=== PATIENT | male | born 1985 | race Caucasian/White ===

== ENCOUNTER 2017-06-06 14:25 | Emergency (ER) | payer OTHER ==
[~2017-06-06] VITALS: Ht 177.8 cm; Wt 110.0 kg
[2017-06-06 14:31] VITALS: TEMP 36.6; Ht 177.8 cm; Wt 110.0 kg
[2017-06-06] MEDS ORDERED: HYDR-3124 PO (15:00)
[2017-06-06] MEDS ORDERED: CETI10TA10 PO (15:00)
[2017-06-06] MEDS ORDERED: MOME200A INH (15:00)
[2017-06-06] MEDS ORDERED: VNTHFA/IN INH (15:00)
[2017-06-06] MEDS ORDERED: PRED20TA PO (15:00)
[2017-06-06] MEDS ORDERED: ALBINS/ INH (15:00)
[2017-06-06] MEDS ORDERED: ESCI1TAB10 PO (15:00)
[2017-06-06] MEDS ORDERED: FLV1 PO (15:00)
[2017-06-06] MEDS ORDERED: CYAN10004 PO (15:00)
[2017-06-06] MEDS ORDERED: ATR25 PO (15:00)
[2017-06-06] MEDS ORDERED: LAMO25TA PO (15:00)
[2017-06-06] MEDS ORDERED: RANI300T2 PO (15:00)
--- NOTE | 2017-06-06 15:23 | EMERGENCY ROOM VISIT NOTE ---
History First contact with patient: 15:05 Chief Complaint: RASH Stated Complaint: RED SWOLLEN EYES/FACE, RASH IN PRIVATE AREA History of Present Illness The patient is a 31 year old male who presents to the Emergency Room with complaints of rash. The patient states that he noticed erythema and swelling in the bilateral periorbital area 3 days ago. He states it is itchy. He states he also notices small area on his penis. He states that there is mild swelling and he reports that the rash is itchy. He was doing gardening on . The patient denies any vomiting, trouble breathing. The patient is currently being evaluated for an unknown possible autoimmune disease in which she gets recurrent dermatitis and swelling. For this, he takes Atarax and Zantac, prednisone when he gets a flare. He took prednisone yesterday but not today. The patient states he also has been thoroughly evaluated for intermittent episodes of memory loss. He follows closely with neurology and has had an extensive evaluation. He has no change in the symptoms. The patient presents today for the rash. He denies any pain. Review of Systems A 10 system review of systems was completed with positives and pertinent negatives listed in the HPI. Past Medical/Surgical History Medical Problems: (1) Anxiety (2) Depression (3) Sleep apnea Social History Smoking Status: Never Smoker Housing Status: lives with family Current/Historical Medications Scheduled Cetirizine Hcl (Zyrtec), 10 MG PO DAILY Cyanocobalamin (Vitamin B-12 1000 Mcg), 1,000 MCG PO DAILY Escitalopram Oxalate (Lexapro), 30 MG PO DAILY Folic Acid (Folic Acid), 1 MG PO DAILY Hydroxyzine HCl (Hydroxyzine HCl), 25 MG PO HS Lamotrigine (Lamictal), 25 MG PO DAILY Mometasone Furoate-Formoterol (Dulera 200/5 Mcg), 2 PUFFS INH BID Ranitidine (Zantac), 300 MG PO DAILY Scheduled PRN Albuterol Hfa (Ventolin Hfa), 2 PUFFS INH Q4H PRN for Shortness of Breath Albuterol Sulf (Proventil 0.083% 2.5MG/3ML), 2.5 MG INH Q4 PRN for Cough Hydroxyzine Hcl (Atarax), 25 MG PO Q4H PRN for RASH/SWELLING Prednisone (Prednisone), 40 MG PO DIRECTED PRN for SWELLING Physical Exam Vital Signs Date Time Temp Pulse Resp B/P (MAP) Pulse Ox O2 Delivery O2 Flow Rate FiO2 06/06/17 15:41 96 16 116/80 96 06/06/17 14:31 36.6 86 18 131/84 95 Room Air Physical Exam VITALS: Vitals are noted on the nurse's note and reviewed by myself. Vital signs stable. GENERAL: This is a 31-year-old male, in no acute distress, nondiaphoretic, well- developed well-nourished. SKIN: There is erythema and edema in the bilateral periorbital areas. There is no tenting of the skin. Capillary reflex less than 2 seconds. HEAD: Normocephalic atraumatic. EARS: External auditory canals clear, tympanic membranes pearly montes without erythema or effusion bilaterally. EYES: Pupils equal round and reactive to light and accommodation. Conjunctivae without injection, sclerae without icterus. Extraocular movements intact. There is no hyphema, hypopyon, NOSE: Patent, turbinates without inflammation or discharge. MOUTH: Mucous membranes moist. Tonsils are not enlarged. Pharynx without erythema or exudate. Uvula midline. Airway patent. Tongue does not deviate. NECK: Supple without nuchal rigidity. No lymphadenopathy. No thyromegaly. Cervical spine is nontender. No JVD. HEART: Regular rate and rhythm without murmurs gallops or rubs. LUNGS: Clear to auscultation bilaterally without wheezes, rales or rhonchi. No retractions or accessory muscle use. : Patient refused MUSCULOSKELETAL: Full range of motion without joint tenderness in all extremities. Normal gait. Strength 5/5 throughout. NEURO: Patient was alert and oriented to person place and time. No focal neurological deficits. Medical Decision & Procedures Medications Administered Medications (Trade) Dose Ordered Sig/Danielle Route Start Time Stop Time Status Last Admin Dose Admin Dexamethasone Sodium Phosphate (Decadron Inj) 10 mg NOW ONCE IM 06/06/17 15:30 06/06/17 15:31 DC 06/06/17 15:30 10 MG ED Course The patient was seen and examined. Previous visits were reviewed. The patient has been dealing with recurrent dermatitis, possibly allergic in nature as well as episodes of memory lapse. The patient has been thoroughly evaluated by neurology and his family doctor. Those symptoms have not significantly changed. He presents today because of the itching and rash around his eyes. He refused a exam Although he states he had some rash on his genitals. The patient was given Decadron 10 mg IM. The patient is already taking prednisone, Atarax and Zantac. He should continue these medications. He should return to the ER with any worsening symptoms. Otherwise, he should continue to follow with his specialists. Medical Decision The differential diagnosis includes contact dermatitis, idiopathic angioedema, allergic reaction, among others Medication Reconcilliation Current Medication List: was personally reviewed by me Blood Pressure Screening Patient's blood pressure: Normal blood pressure Blood pressure disposition: Did not require urgent referral Impression Primary Impression: Dermatitis Departure Information Dispostion Home / Self-Care Condition GOOD Referrals Larry Barkley M.D. (PCP) Patient Instructions My [facility] Additional Instructions Continue the prednisone 40mg daily for 5 days Continue the atarax and zantac follow up with your specialists for further evaluation and management Return with worsening symptoms
[2017-06-06] MEDS ORDERED: DEXAMETHASONE SOD INJ 10 MG/ML VIAL IM ONE (15:30)
[2017-06-06 15:41] VITALS: BP 116/80; PULSE 96; O2SAT 96
== END 2017-06-06 15:43 | disposition home or self-care (01) ==
LOC: C.EDB 14:27 → C.EDD 15:43
DX: L30.9 Dermatitis, unspecified (principal); F41.9 Anxiety disorder, unspecified; F32.9 Major depressive disorder, single episode, unspecified; G47.30 Sleep apnea, unspecified